=== PATIENT | female | born 2005 | race African-American/Black ===

== ENCOUNTER 2023-03-11 11:44 | Emergency (ER) | payer MEDICAID ==
[~2023-03-11] VITALS: Ht 172.7 cm; Wt 78.0 kg
[2023-03-11 11:51] VITALS: BP 116/79; PULSE 67; RESP 20; TEMP 98.6; O2SAT 99
--- NOTE | 2023-03-11 12:02 | NUR ---
PT. WALKED TO BED 06
--- NOTE | 2023-03-11 12:15 | NUR ---
Pt bibs for bs elevations x 3 days. Pt states her bs has been spiking to read "high" on her reader. Pt takes insulin, which helps but bs elevates again. Pt is a/o x 4, vss, no ss of acute distress, breathing equal and unlabored, speech clear, no ss of acute distress. Pt on monitor, labs drawn, at bedside.
--- NOTE | 2023-03-11 12:17 | NUR ---
Patient being evaluated by ISAIAS at bedside.
[2023-03-11 12:18] LABS: BASOPHILS # (AUTO) 0.1 K/uL (0.00-0.22); EOSINOPHILS % (AUTO) 0.8 % (0.0-4.0); HEMATOCRIT 34.2 % (36-48); HEMOGLOBIN 11.7 g/dL (12.0-16.0); LYMPHOCYTES % (AUTO) 38.2 % (20.5-51.1); MEAN CORPUSCULAR HEMOGLOBIN 28 pg (27-31); MEAN CORPUSCULAR HGB CONC 34 g/dL (33-37); MEAN CORPUSCULAR VOLUME 82.2 fL (80-94); MONOCYTES # (AUTO) 0.3 K/uL (0.8-1.0); MONOCYTES % (AUTO) 5.7 % (1.7-9.3); NEUTROPHILS # (AUTO) 2.9 K/uL (1.8-7.7); NEUTROPHILS % (AUTO) 54.3 % (42.2-75.2); PLATELET COUNT (AUTO) 375 K/uL (140-450); RED BLOOD CELL COUNT(AUTO) 4.17 MIL/uL (4.20-5.40); RED CELL DISTRIBUTION WIDTH 13.5 % (11.6-13.7); WHITE BLOOD COUNT (AUTO) 5.2 K/uL (4.5-11.0)
[2023-03-11 12:35] LABS: ALBUMIN 3.5 g/dL (3.4-5.0); ANION GAP 12.1 (8-16); CREATININE 0.7 mg/dL (0.6-1.3); POTASSIUM 4.1 mmol/L (3.5-5.1); TOTAL BILIRUBIN 0.6 mg/dL (0.0-1.0)
[2023-03-11 12:45] LABS: BILIRUBIN,URINE NEGATIVE (NEGATIVE); BLOOD, URINE TRACE-I (NEGATIVE); COLOR,URINE YELLOW (YELLOW); LEUKOCYTE ESTERASE ,URINE 1+ (NEGATIVE); NITRITE, URINE POSITIVE (NEGATIVE); UGLUCOSE TRACE (NEGATIVE)
[2023-03-11] MEDS ORDERED: NACL 0.9% 1,000 ML IV ONE (12:55)
[2023-03-11 12:56] LABS: APPEARANCE,URINE HAZY (CLEAR)
[2023-03-11 13:01] LABS: RBC,URINE 0-5 /HPF (0-5); YEAST,URINE None Seen /HPF (None Seen)
[2023-03-11 13:02] LABS: CALCIUM OXALATE CRYSTALS,UR None Seen /HPF (None Seen); COARSE GRANULAR CASTS,URINE None Seen /LPF (None Seen); FINE GRANULAR CASTS,URINE None Seen /LPF (None Seen); HYALINE CASTS, URINE None Seen /LPF (None Seen); OTHER CASTS, URINE None Seen /LPF (None Seen); OTHER CRYSTALS,URINE None Seen /HPF (None Seen); RED BLOOD CELL CASTS,URINE None Seen /LPF (None Seen); TRICHOMONAS,URINE None Seen /HPF (None Seen); TRIPLE PHOSPHATE CRYSTAL,UR None Seen /HPF (None Seen); URIC ACID CRYSTALS,URINE None Seen /HPF (None Seen); URINE AMORPHOUS URATE None Seen /HPF (None Seen); WAXY CASTS,URINE None Seen /LPF (None Seen)
[2023-03-11] MEDS ORDERED: CEPH-588 PO (13:25)
[2023-03-11] MEDS ORDERED: IBUP-2213 PO (13:25)
[2023-03-11 14:27] VITALS: BP 112/70; PULSE 74; RESP 17; O2SAT 98
--- NOTE | 2023-03-11 14:30 | NUR ---
Patient discharged with v/s stable. Written and verbal after care instructions given and explained. Patient verbalized understanding. Ambulatory with steady gait. All questions addressed prior to discharge. Advised to follow up with PMD.
== END 2023-03-11 14:27 | disposition home or self-care (01) ==
LOC: MED 11:44
DX: N39.0 Urinary tract infection, site not specified (principal); E10.65 Type 1 diabetes mellitus with hyperglycemia; D64.9 Anemia, unspecified; Z79.1 Long term (current) use of non-steroidal anti-inflammatories (NSAID); Z79.2 Long term (current) use of antibiotics; Z88.2 Allergy status to sulfonamides
CPT/HCPCS: 36415; 80053; 81001; 81025; 83690; 85025; 87086; 96360; 99283

== ENCOUNTER 2023-05-21 12:57 | Emergency (ER) | payer MEDICAID ==
[~2023-05-21] VITALS: Ht 170.2 cm; Wt 82.2 kg
[~2023-05-21 12:57] MED LIST: CEPH-588 PO; IBUP-2213 PO
[2023-05-21 13:32] VITALS: BP 131/80; PULSE 77; RESP 20; TEMP 98.1; O2SAT 99
[2023-05-21] MEDS ORDERED: GABA300C PO (15:19)
== END 2023-05-21 15:53 | disposition home or self-care (01) ==
LOC: MED 12:57
DX: E10.40 Type 1 diabetes mellitus with diabetic neuropathy, unspecified (principal); R20.2 Paresthesia of skin; R20.0 Anesthesia of skin; Z79.899 Other long term (current) drug therapy; Z88.2 Allergy status to sulfonamides
CPT/HCPCS: 73630; 99283

== ENCOUNTER 2023-09-27 18:42 | Emergency (ER) | payer MEDICAID, OTHER ==
[~2023-09-27] VITALS: Ht 167.6 cm; Wt 72.6 kg
[~2023-09-27 18:42] MED LIST changes: +GABA300C PO
[2023-09-27 19:17] VITALS: BP 127/83; PULSE 72; RESP 18; TEMP 98; O2SAT 98
[2023-09-27] MEDS ORDERED: NAPR-54 PO ×2 (19:43→20:28)
[2023-09-27] MEDS ORDERED: CYCL-711 PO ×2 (19:43→20:28)
[2023-09-27 20:28] VITALS: BP 127/83; PULSE 72; RESP 18; TEMP 98; O2SAT 98
== END 2023-09-27 20:28 | disposition home or self-care (01) ==
LOC: MED 18:42
DX: M54.50 Low back pain, unspecified (principal); E11.9 Type 2 diabetes mellitus without complications; Z88.2 Allergy status to sulfonamides; Z79.4 Long term (current) use of insulin; Z79.899 Other long term (current) drug therapy
CPT/HCPCS: 81002; 81025; 99283